=== PATIENT | male | born 1970 | race Caucasian/White ===

== ENCOUNTER → 2020-06-17 | Emergency (ER) | payer BC ==
[~2020-06-17] MED LIST: Adacel (T-DAP) 0.5 ML SYRINGE ONE; Cephalexin 250 MG CAP ONE; Lidocaine 1% PF 5 ML VIAL ONE
== END ==
LOC: EDBD 19:06 → BURERS 19:06
DX: S61.211A Laceration without foreign body of left index finger without damage to nail, initial encounter (principal); Z23 Encounter for immunization; W26.8XXA Contact with other sharp object(s), not elsewhere classified, initial encounter
CPT/HCPCS: 12002; 90471; 90715

== ENCOUNTER 2020-06-29 19:07 | Emergency (ER) | payer BC | END 2020-06-29 19:20 | disposition home or self-care (01) | LOC: BURERS 19:07 | DX: S61.211D Laceration without foreign body of left index finger without damage to nail, subsequent encounter (principal) ==

== ENCOUNTER 2021-02-03 12:44 | Emergency (ER) | payer BC | END 2021-02-03 14:11 | disposition home or self-care (01) | LOC: BURERS 12:44 | DX: S52.502A Unspecified fracture of the lower end of left radius, initial encounter for closed fracture (principal); V00.131A Fall from skateboard, initial encounter; Y93.51 Activity, roller skating (inline) and skateboarding ==

== ENCOUNTER 2021-02-10 10:31 | Outpatient (CLI) | payer BC | END 2021-02-10 10:32 | disposition home or self-care (01) | LOC: BURRAD 10:31 | PROVIDERS: ATTEND Family Medicine | DX: M25.532 Pain in left wrist (principal) ==

== ENCOUNTER 2021-11-01 12:04 | Emergency (ER) | payer BC ==
[2021-11-01] MEDS ORDERED: Ketorolac Tromethamine 30 MG/ML VIAL ONE (12:46)
== END 2021-11-01 13:09 | disposition home or self-care (01) ==
LOC: BURERS 12:04
DX: M62.830 Muscle spasm of back (principal); F17.210 Nicotine dependence, cigarettes, uncomplicated
CPT/HCPCS: 99283; J1885